=== PATIENT | female | born 1970 ===

== ENCOUNTER 2016-06-01 06:33 | Inpatient (IN) | payer BC, OTHER ==
[2016-05-26 10:48] VITALS: BMI 30.7
[2016-06-01] MEDS ORDERED: Bacitracin 50,000 UNIT in Sodium Chloride 0.9% Irrig 1,000 ML IR SCH (07:30)
[2016-06-01] MEDS ORDERED: Methylene Blue 10 mg/ml (1ml) Inj ONE (07:38)
[2016-06-01] MEDS ORDERED: Bupivacaine/Epi 0.25%-1:200,000 10 ml PF inj IJ ONE ×2 (07:39→09:36)
[2016-06-01] MEDS ORDERED: Clindamycin 2% Vaginal Cream(40 gm) ONE (07:39)
[2016-06-01] MEDS ORDERED: Rocuronium 10 mg/ml (5 ml) ONE (08:32)
[2016-06-01] MEDS ORDERED: Midazolam 2 MG/2 ML VIAL ONE (08:32)
[2016-06-01] MEDS ORDERED: Propofol 10 mg/ml Inj (20 ML) ONE (08:32)
[2016-06-01] MEDS ORDERED: Neostigmine Methylsulfate 3mg/3ml Syringe IV ONE (08:37)
[2016-06-01] MEDS ORDERED: Succinylcholine Chloride 20 mg/ml Syr (5 ml) IV ONE (08:37)
[2016-06-01] MEDS ORDERED: Lidocaine 2% Jelly (Uro-Jet) ONE (08:38)
[2016-06-01] MEDS ORDERED: ceFAZolin 1 gm FROZEN Premix 50 ML IVPB ONE (08:45)
[2016-06-01] MEDS ORDERED: Lactated Ringer's 1,000 ML IV ONE (08:50)
--- NOTE | 2016-06-01 10:29 | PCM.SURG1 ---
Surgeon's Initial Post Op Note - Surgeon's Notes Surgeon: Miguel Sarmineto MD Summer Intern: Shivani BARRONNFA Type of Anesthesia: General Endo, Local Pre-Operative Diagnosis: REctocele Stage III. Vaginal fistula. Dysparunia. Urinary incontinence. Perineal laxity Operative Findings: Stage III Rectocele. 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 Short perineal body Post-Operative Diagnosis: REctocele Stage III. Vaginal fistula. Dysparunia. Urinary incontinence. Perineal laxity Operation Performed: Posterior Repair. Perineoorphy. Vaginal fistulectomy. Midurethral sling. Cystoscopy. DESCRIPTION: This is a 45 years old female with long-standing and worsening symptoms of rectocele and fecal smearing, urinary urgency and pelvic pain. The patient is reporting leakage of feces as well as urine upon any exertion, coughing sneezing as well as vaginal bulge and pressure in the pelvis. For the past several years, these symptoms of involuntary leakage of urine and vaginal pressure have been worsening; she describes these symptoms as debilitating and adversely affecting her quality of life. A comprehensive urinary incontinence workup was completed which included a TVUS, multichannel complex urodynamic study, urinalysis and cultures. The preoperative workup supports a diagnosis of stress urinary incontinence along with urgency and detrusor instability and symptomatic rectocele and fecal incontinence and distal fistula (vaginal). The patient failed conservative management which included Kegels exercises as well as lifestyle changes and other pelvic floor rehabilitation exercises. A prolong and detailed discussion about conservative versus surgical management of urinary incontinence and rectocele and fecal incontinence was completed. The patient elected to proceed with surgical management of rectocele repair, fistulectomy and sphincter repair and urinary incontinence. A decision was made to proceed with a posterior vaginal repair and mid-urethral sling procedure using polypropylene mesh material and sphincteroplasty / fistulectomy. After a detailed discussion regarding the pros and cons of sling procedure and the utilization of polypropylene mesh material, all risks were reviewed including but not limited to, risk of infection, mesh erosion, postoperative pain and dyspareunia. In addition, the FDA warning about mesh utilization for prolapse and incontinence surgery was reviewed in details, and a detailed and specific written informed consent was obtained. The patient elected to proceed with a Midurethral sling and prolapse repair today fully understanding and accepting the risks associated with utilizing polypropylene mesh material. Other alternatives were also offered to the patient, including a biological graft such as porcine sling as well as the patient owns fascia for sling material and prolapse repair, she elected to proceed with a primary repair for the fistula and rectocele with no mesh as well as a polypropylene mesh sling despite all the associated risks. After proper consent was obtained from the patient, patient was taken to the operating room, placed in the dorsolithotomy position; general anesthesia was obtained without difficulty. She was placed in the dorsal lithotomy position, her legs were placed in adjustable Clyde stirrups, and careful attention was placed not to over flex or over rotates the lower extremities and the hip or knee joints. Kelly catheter was inserted under sterile conditions. She was prepped and draped appropriately for a posterior colporhaphy, sphincteroplasty and mid-urethral sling procedure. A posterior longitudinal incision was made including the distal fistula with an opening from the perineal body to the vagina. The fistula was not communicating with the rectum, although it was in close proximity to the anus however on the perineal body. The incision included the fistula along with entire tract removing the entire fistula complex /tract. A sagittal incision was made in the vaginal epithelium in the posterior compartment beginning at the forchettte, moving proximally towards the apex of the vagina. Lateral dissection underneath the epithelium was performed, leaving a thick flap between the vagina and rectum. The vaginal epithelium was undermined to the vaginal apex, exposing the underlying rectocele and posterior compartment defect. Prior to the repair of the posterior defect, the rectal external sphincter was dissected off and in an interrupted fashion, the muscle was imbricated in multiple fashion in a circular fashion. This provided support and reinforcement of a sphincter which was disrupted likely during a prior episiotomy in the past. The muscle was re- approximated and imbricated without tension. Next, the posterior defect in the posterior wall was identified and multiple interrupted sutures using o vicryl material was used. The rectovaginal fascia was re-approximated all the way extending to the apex of the vagina. The rectocele was reduced under the approximation of endopelvic fascia. Redundant vaginal mucosa was excised and the vaginal incision was then closed using a running 2-0 Vicryl ligature. Perineoorphy was completed by recreating the perineal body with multiple 0 vycryl suture in interrupted suture. The closure over the posterior vaginal wall included the defect created by the excision of the fistula tract. Careful approximation of the vaginal mucosa was performed. The anterior vaginal wall over the Midurethral area was grasped with a pair of Allis clamps and tenting the vaginal wall from the underlying urethra. Local anesthetic solution of 0.25 % Marcaine with epinephrine diluted 1:1 was used to infiltrate the periurethral space. A total of 20 cc was utilized. Using a scalpel, a Midurethral vertical incision about 1 cm was made through the vaginal epithelium and periurethral fascia. Careful lateral sharp dissection using Metzenbaum scissors towards the inferior pubic ramus to eventually allow the sling graft to lie flat against the urethra. Next, the sling mesh was loaded onto the needle tip. The needle tip was inserted through one side of the incision towards the medial edge of the obturator foramen approximately 45 degrees of the horizontal plane. Using an arching motion, the needle tip was advanced through pushing the obturator internus muscle. The needle was released from the graft and loaded on the other side of the sling ready for deployment to the contralateral side. Ensuring the sling is flat on the urethra and not twisted, the needle was advanced in an arching motion towards the obturator internus muscle on the opposite site. Attention was readdressed to allow a flat placement with tension- free sling on the midurethra region. Following saline irrigation and good hemostasis was noted , the vaginal mucosa was closed with 2-0 Vicryl in a locking fashion. At this time, the Kelly catheter was removed and a diagnostic cystoscopy was performed. The bladder was distended with about 300 cc of fluid. Both ureteral orifices were noted to be fluxing urine normally. The trigone was normal. There were no noted abnormalities with any evidence of any compromise of the lower urinary tract with mesh material, sutures or instruments. The patient emerged from general anesthesia without any difficulty. The patient was taken to the recovery room in stable condition. Prior to incision patient received prophylactic antibiotics, prior to closure sponge lap and needle counts are correct x2. The 2-inch iodoform gauze vaginal packing was then placed to prevent hematoma formation underneath the vaginal mucosa. Needle, sponge, and instrument counts were correct. Specimen/Specimens Removed: vaginal mucosa and fistula tract Estimated Blood Loss: EBL {In ML}: 30 Blood Products Given: N/A Drains Used: No Drains Post-Op Condition: Good Date of Surgery/Procedure: 06/01/16 Time of Surgery/Procedure: 10:30
[2016-06-01] MEDS ORDERED: Trimethobenzamide 200 mg/2 mL Inj IM PRN (10:30)
[2016-06-01] MEDS ORDERED: Morphine 4 MG/ML VIAL IVP PRN (10:30)
[2016-06-01] MEDS ORDERED: ceFAZolin IV 2 gm in Dextrose 50 ML IVPB SCH (10:30)
[2016-06-01] MEDS ORDERED: Sodium Chloride 0.9% 1,000 ML IV SCH (10:30)
[2016-06-01] MEDS ORDERED: HYDROmorphone 0.5 mg/0.5 ml ISec IVP PRN (10:43)
[2016-06-01] MEDS ORDERED: Sodium Chloride 0.9% 1,000 ML IV ONE (12:00)
[2016-06-01] MEDS: Oxycodone/Acetaminophen 5/325 mg Tab PO PRN ×2 (14:50→20:42)
[2016-06-01] MEDS: ceFAZolin IV 2 gm in Dextrose 50 ML IVPB SCH (17:14)
[2016-06-01 22:41] LABS: BASO # 0.1 K/uL (0.0-0.2); BASO % 1.2 % (0.0-2.0); HEMATOCRIT 35.5 % (34.0-47.0); LYMPH # 0.5 K/uL (1.0-4.3); LYMPH % 5.3 % (20.0-40.0); MEAN CELL VOLUME 84.5 fL (81.0-99.0); MEAN PLATELET VOLUME 8.1 fL (7.2-11.7); MONO # 0.3 K/uL (0.0-0.8); MONO % 3.2 % (0.0-10.0); PLATELET COUNT 254 K/uL (130-400); RED CELL DISTRIBUTION WIDTH 24.2 % (11.5-14.5)
[2016-06-01 22:50] LABS: CHLORIDE 106 mmol/L (98-107); SODIUM 137 mmol/L (132-148)
[2016-06-01 22:51] LABS: POTASSIUM 4.1 mmol/L (3.6-5.2)
[2016-06-01 22:53] LABS: ALB/GLOB RATIO 1.4 (1.0-2.1); ALKALINE PHOSPHATASE 51 U/L (38-126); ALT/SGPT 17 U/L (9-52); AST/SGOT 16 U/L (14-36); BILIRUBIN,TOTAL 0.6 mg/dL (0.2-1.3); BLOOD UREA NITROGEN 11 mg/dL (7-17); CARBON DIOXIDE 21 mmol/L (22-30); GFR AFRICAN-AMERICAN > 60; GLUCOSE,RANDOM 152 mg/dL (65-105); TOTAL PROTEIN 6.3 g/dL (6.3-8.3)
[2016-06-01 22:54] LABS: CALCIUM 8.1 mg/dl (8.6-10.4)
[2016-06-01 23:54] LABS: NEUTROPHIL 88 % (50-75); TOTAL CELLS COUNTED 100
[2016-06-01 23:55] LABS: LARGE PLATELETS PRESENT; SMUDGE CELLS PRESENT
[2016-06-02] MEDS: ceFAZolin IV 2 gm in Dextrose 50 ML IVPB SCH ×2 (00:53→09:27)
[2016-06-02 07:15] LABS: MEAN CELL VOLUME 83.8 fL (81.0-99.0); MEAN CORPUSCULAR HEMOGLOBIN 26.6 pg (27.0-31.0); MEAN CORPUSCULAR HGB CONC 31.8 g/dL (33.0-37.0); MEAN PLATELET VOLUME 8.1 fL (7.2-11.7); RED CELL DISTRIBUTION WIDTH 24.1 % (11.5-14.5); WHITE BLOOD COUNT 11.3 K/uL (4.8-10.8)
[2016-06-02 07:48] LABS: CHLORIDE 108 mmol/L (98-107); POTASSIUM 3.6 mmol/L (3.6-5.2); SODIUM 138 mmol/L (132-148)
[2016-06-02 07:51] LABS: CARBON DIOXIDE 21 mmol/L (22-30); GFR AFRICAN-AMERICAN > 60
[2016-06-02 07:52] LABS: BLOOD UREA NITROGEN 9 mg/dL (7-17); CALCIUM 7.7 mg/dl (8.6-10.4); GLUCOSE,RANDOM 89 mg/dL (65-105)
[2016-06-02 08:31] VITALS: RESP 18
[2016-06-02] MEDS: Oxycodone/Acetaminophen 5/325 mg Tab PO PRN (09:28)
--- NOTE | 2016-06-02 16:30 | CP.PCM.PN ---
Subjective - Date & Time of Evaluation Date of Evaluation: 06/02/16 Time of Evaluation: 16:30 - Subjective Subjective: pt was seen at bed side. feels good, pain undr control,no n/v, tolerating deit, voiding. no com abd soft,non tender ext no edema,no calf ten Objective - Vital Signs/Intake and Output Vital Signs (last 24 hours): Temp Pulse Resp BP Pulse Ox 97.7 F 70 18 104/68 98 06/02/16 08:00 06/02/16 08:00 06/02/16 08:00 06/02/16 08:00 06/02/16 08:00 Intake and Output: 06/02/16 06/02/16 06:59 18:59 Output Total 640 Balance -640 - Medications Medications: Current Medications Sodium Chloride (Sodium Chloride 0.9%) 1,000 mls @ 75 mls/hr IV .[id number] JACINTO Morphine Sulfate (Morphine) 4 mg IVP Q4H PRN PRN Reason: Pain, severe (8-10) Oxycodone/Acetaminophen (Percocet 5/325 Mg Tab) 1 tab PO Q4 PRN PRN Reason: Pain, moderate (4-7) Stop: 06/04/16 10:31 Last Admin: 06/02/16 09:28 Dose: 1 tab Trimethobenzamide HCl (Tigan) 200 mg IM Q6 PRN PRN Reason: Nausea/Vomiting - Labs Labs: 06/02/16 06:59 06/02/16 06:59 - Constitutional Appears: Well Assessment and Plan - Assessment and Plan (Free Text) Assessment: 45 yr s/p AP REPIR/Sling Plan: plan dc home no sex percocet prn f/u Dr Jj in 1-2weeks
[2016-06-02 18:21] VITALS: BP 111/73; PULSE 79; TEMP 97.1; O2SAT 97
== END 2016-06-02 17:20 | disposition home or self-care (01) | DRG 746 ==
LOC: C.SDS 06:33 → C.4M 10:30
PROVIDERS: ADMIT Obstetrics & Gynecology; ATTEND Obstetrics & Gynecology
PROC: 0UBG0ZZ Excision of Vagina, Open Approach (ICD-10-PCS; 2016-06-01)
PROC: 0TSD0ZZ Reposition Urethra, Open Approach (ICD-10-PCS; 2016-06-01)
PROC: 0WQN0ZZ Repair Female Perineum, Open Approach (ICD-10-PCS; 2016-06-01)
PROC: 0TJB8ZZ Inspection of Bladder, Via Natural or Artificial Opening Endoscopic (ICD-10-PCS; 2016-06-01)
PROC: 0JQC0ZZ Repair Pelvic Region Subcutaneous Tissue and Fascia, Open Approach (ICD-10-PCS; principal; 2016-06-01 08:50)
DX: N81.6 Rectocele (principal); N82.8 Other female genital tract fistulae; R32 Unspecified urinary incontinence; N81.89 Other female genital prolapse; N94.10 Unspecified dyspareunia